=== PATIENT | male | born 1975 | race Native Hawaiian/Other Pacific Islander ===

== ENCOUNTER 2019-12-08 15:26 | Outpatient (CLI) | payer OTHER ==
[2019-12-08 15:55] LABS: PLATELET COUNT 248 K/uL (142-355)
== END 2019-12-08 23:32 | disposition home or self-care (01) ==
LOC: LAB 15:26
PROVIDERS: Nurse Practitioner Family
DX: E66.9 Obesity, unspecified (principal); E78.5 Hyperlipidemia, unspecified; R53.83 Other fatigue; K21.9 Gastro-esophageal reflux disease without esophagitis; N52.9 Male erectile dysfunction, unspecified; E03.9 Hypothyroidism, unspecified
CPT/HCPCS: 80053; 80061; 83036; 84403; 84443; 85027

== ENCOUNTER 2022-06-08 14:17 | Outpatient (CLI) | payer OTHER | END 2022-06-08 19:08 | disposition home or self-care (01) | LOC: CT 14:17 | PROVIDERS: ATTEND Nurse Practitioner Family | DX: R10.31 Right lower quadrant pain (principal); R10.829 Rebound abdominal tenderness, unspecified site | CPT/HCPCS: 36415; 82565; 84520; Q9963 ==